=== PATIENT | male | born 2000 | race Caucasian/White ===

== ENCOUNTER 2022-11-09 16:57 | Outpatient (CLI) | payer BC, SELFPAY ==
--- NOTE | ~2022-11-09 | US_ITS ---
EXAMINATION: US soft tissue head and neck DATE: 11/09/2022 18:07 INDICATION: Localized swelling, mass and lump, neck. TECHNIQUE: Multiple grayscale and Doppler ultrasound images of the neck were obtained. COMPARISON: None FINDINGS: There is a 7.1 x 4.2 x 3.0 cm homogeneous hyperechoic mass in the anterior neck that may be in the submandibular space or floor of mouth. IMPRESSION: 1. 7.1 cm hyperechoic mass in the anterior neck. The differential diagnosis is broad based on the heidi ilable imaging and includes benign masses such as lipoma, venous malformation, dermoid and epidermoid , benign mixed tumor, and ranula and malignancy such as lymphoma. Neck CT with contrast is recommende d. Reviewed, dictated and finalized at location A. 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 7.1 cm hyperechoic mass in the anterior neck. The differential diagnosis is broad based on the available imaging and includes benign masses such as lipoma, venous malformation, dermoid and epidermoid, benign mixed tumor, and ranula an d malignancy such as lymphoma. Neck CT with contrast is recommended.
== END 2022-11-09 16:58 | disposition home or self-care (01) ==
PROVIDERS: PCP Family Medicine Adolescent Medicine; Visit Provider Physician Assistant
DX: R22.1 Localized swelling, mass and lump, neck (principal)
CPT/HCPCS: 76536

== ENCOUNTER 2022-11-24 11:38 | Outpatient (CLI) | payer BC, SELFPAY ==
--- NOTE | ~2022-11-24 | CT_ITS ---
CT scan of the Neck Technique: 2.5 mm axial scans were obtained through the neck after intravenous administration of 75 c c Omnipaque 350. Coronal and sagittal reconstructions of the neck were obtained. Dose reduction techn ique was used on this scan by utilizing automated exposure control and iterative reconstruction techn ique. The dose-length product (DLP) was 415.88 mGy-cm. Clinical History: Mass Correlation made with ultrasound dated 11/09/2022. Findings: There is a circumscribed, smoothly marginated ovoid cystic mass in the midline in the sublingual manan on, measuring 4.1 x 2.5 x 7.5 cm in size (axial image 43, sagittal image 43 for example). No lymphade nopathy or solid mass seen in the remainder of the neck. There is mild prominence of the bilateral thornton bmandibular gland ducts, likely due to mass effect from the aforementioned lesion. Parotid and subman dibular glands are unremarkable. Parapharyngeal fat preserved bilaterally. There is a 1 cm mildly complex cystic-appearing nodule in the left thyroid lobe. Images of the lung a pices reveal no abnormalities. Impression: 4.1 x 2.5 x 7.5 cm cystic mass in the lingual/sublingual region, as detailed above, which correlates with lesion seen on recent ultrasound. 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 Reviewed, dictated and finalized at location . SECURITY PROJECT MANAGER Impression: 4.1 x 2.5 x 7.5 cm cystic mass in the lingual/sublingual region, as detailed ab ove, which correlates with lesion seen on recent ultrasound. This most likely r epresents a large lingual/sublingual thyroglossal duct cyst.
== END 2022-11-24 11:39 | disposition home or self-care (01) ==
PROVIDERS: PCP Family Medicine Adolescent Medicine; Visit Provider Physician Assistant
DX: R22.1 Localized swelling, mass and lump, neck (principal)
CPT/HCPCS: 70491; Q9967